=== PATIENT | male | born 1950 | race Caucasian/White ===

== ENCOUNTER → 2018-08-08 | Outpatient (CLI) | payer MEDICARE, OTHER ==
[~2018-08-08] MED LIST: CELEXA40 MG PO; FLOMAX 0.40.4 MG/CAP PO; NORCO 325 MG-51 TAB PO; PRINZIDE 12.5 M1 TA1 PO; ZESTRIL 20MG TA20 MG PO
== END ==
LOC: COL.RAD 06:47
DX: Z13.6 Encounter for screening for cardiovascular disorders (principal)

== ENCOUNTER → 2019-02-17 | Outpatient (CLI) | payer MEDICARE, OTHER | LOC: COL.RAD 07:56 | DX: R91.1 Solitary pulmonary nodule (principal) | CPT/HCPCS: Q9967 ==

== ENCOUNTER 2021-06-09 16:16 | Inpatient (IN) | payer MEDICARE, OTHER ==
[~2021-06-09] VITALS: Ht 182.9 cm; Wt 73.0 kg
[2021-06-09 18:21] LABS: HEMATOCRIT 37.1 % (42.0-52.0); HEMOGLOBIN 13.7 g/dl (13.5-18.0); MEAN CELL VOLUME 87 fl (80.0-100.0); MEAN CORPUSCULAR HEMOGLOBIN 32 pg (27-31); MEAN CORPUSCULAR HGB CONC 37 g/dl (33.0-37.0); MEAN PLATELET VOLUME 8.8 fl (7.4-10.4); PLATELET COUNT 245 K/mm3 (130-400); RED BLOOD COUNT 4.26 M/mm3 (4.20-5.60); REDCELL DISTRIBUTION WIDTH-CV 11.9 % (11.5-14.5)
[2021-06-09 18:36] LABS: BAND 24 % (0-10); LYMPHOCYTE 4 % (20.0-51.0); NEUTROPHILS 63 % (42.0-75.2); PLATELET ESTIMATE NORMAL (NORMAL)
[2021-06-09 18:37] LABS: ALANINE AMINOTRANSFERASE 13 U/L (0-55); ALBUMIN 3.2 gm/dL (3.4-4.8); ALKALINE PHOSPHATASE 57 U/L (40-150); ANION GAP 14 mmol/L (7-16); AST,SGOT 16 U/L (5-34); BILIRUBIN,TOTAL 1.3 mg/dL (0.2-1.2); BLOOD UREA NITROGEN 11 mg/dL (8-26); CALCIUM 9.1 mg/dL (8.4-10.2); CARBON DIOXIDE 22 mmol/L (23-31); CREATININE, serum 0.58 mg/dL (0.72-1.25); GLUCOSE 114 mg/dL (70-99); POTASSIUM 4.3 mmol/L (3.5-4.5); TOTAL PROTEIN 6.9 gm/dL (6.2-8.1)
[2021-06-09 18:39] LABS: CHLORIDE 82 mmol/L (98-107); SODIUM 118 mmol/L (136-145)
[2021-06-09 18:44] LABS: TROPONIN-I < 0.010 ng/mL (0.00-0.033)
[2021-06-09 20:52] LABS: CALCIUM 9.3 mg/dL (8.4-10.2); CREATININE, serum 0.58 mg/dL (0.72-1.25); POTASSIUM 4.3 mmol/L (3.5-4.5)
--- NOTE | 2021-06-09 21:49 | NUR ---
ADMITTED TO ROOM 329 PER WC. O2 2L NC.
[2021-06-09 21:50] VITALS: BP 141/67; PULSE 97; TEMP 98.3
[2021-06-09 22:34] LABS: CALCIUM 8.7 mg/dL (8.4-10.2); CREATININE, serum 0.57 mg/dL (0.72-1.25); POTASSIUM 3.9 mmol/L (3.5-4.5)
--- NOTE | 2021-06-09 22:38 | NUR ---
NOTIFIED SILVA BEGUM OF HIGH CHLORIDE 85. NO NEW ORDERS
[2021-06-09 23:34] VITALS: BP 134/69; PULSE 94; TEMP 97.6
[2021-06-10 00:35] LABS: CALCIUM 8.7 mg/dL (8.4-10.2); CREATININE, serum 0.51 mg/dL (0.72-1.25); POTASSIUM 3.8 mmol/L (3.5-4.5)
[2021-06-10 02:39] LABS: CALCIUM 8.5 mg/dL (8.4-10.2); CREATININE, serum 0.51 mg/dL (0.72-1.25); POTASSIUM 3.7 mmol/L (3.5-4.5)
[2021-06-10 03:45] VITALS: BP 140/29; PULSE 90; TEMP 97.9
[2021-06-10 07:14] LABS: HEMOGLOBIN 12.3 g/dl (13.5-18.0); MEAN CELL VOLUME 91 fl (80.0-100.0); MEAN CORPUSCULAR HEMOGLOBIN 32 pg (27-31); MEAN CORPUSCULAR HGB CONC 36 g/dl (33.0-37.0); MEAN PLATELET VOLUME 9.8 fl (7.4-10.4); PLATELET COUNT 254 K/mm3 (130-400); REDCELL DISTRIBUTION WIDTH-CV 11.9 % (11.5-14.5)
[2021-06-10 07:19] LABS: HEMATOCRIT 34.5 % (42.0-52.0)
[2021-06-10 07:34] VITALS: BP 127/66; PULSE 91; TEMP 97.8
[2021-06-10 07:37] LABS: CALCIUM 8.6 mg/dL (8.4-10.2); CREATININE, serum 0.5 mg/dL (0.72-1.25); POTASSIUM 3.7 mmol/L (3.5-4.5)
--- NOTE | 2021-06-10 08:00 | NUR ---
Patient sitting up in bed, A&Ox3. VSS 2L NC O2, no reported SOB. IV CDI, fluids infusing. Denies pain and discomfort. Audible cough. No further needs expressed. Call light within reach. Seizure precautions in place. Bed alarm on
[2021-06-10 08:01] LABS: BAND 7 % (0-10); BASOPHIL 1 % (0-2)
[2021-06-10 08:02] LABS: LYMPHOCYTE 4 % (20.0-51.0); NEUTROPHILS 71 % (42.0-75.2); PLATELET ESTIMATE NORMAL (NORMAL)
[2021-06-10 11:48] VITALS: BP 121/54; PULSE 100; TEMP 98.1
--- NOTE | 2021-06-10 13:04 | NUR ---
Kraft Digester Operator offered prayer and support with patient.
[2021-06-10 13:24] LABS: CALCIUM 8.5 mg/dL (8.4-10.2); CREATININE, serum 0.6 mg/dL (0.72-1.25); POTASSIUM 3.8 mmol/L (3.5-4.5)
--- NOTE | 2021-06-10 15:25 | NUR ---
SW met with patient to complete intake. Patient states that he lives alone and states that his point of contact is his sister Stephanie Mccauley [phone]. patient provides that he does not currently utilize any DME and is independent with ADL's. He also provides that he does not obtain any outside services for care, PCP is Dr. Gore, [facility] is [facility]. Patient states that his DPOA-HC is hamilton Larkin [phone]. Patient states that his plan is to return to his home [place] and has no concerns with doing so. SW will continue to follow. DC plan: home
[2021-06-10 15:56] VITALS: BP 126/62; PULSE 102; TEMP 99.2
--- NOTE | 2021-06-10 17:56 | NUR ---
Patient sitting up in bed on 10L HF NC O2 and patient overall looks and feels better with higher O2 needs. A&Ox3. VSS. IV CDI. Denies pain and discomfort. Patient wanting more fluids but nursing staff and doctors informing the patient of 1200 FR. Patient verbalized an understanding. No further needs expressed. Call light within reach. Bed alarm on and seizure precautions in place
[2021-06-10 20:26] VITALS: BP 131/71; PULSE 97; TEMP 97.5
--- NOTE | 2021-06-10 20:29 | NUR ---
PT INCONTINENT OF URINE. CLEANED UP. USED INCONT BRIEFS . O2 10L HI FLOW. PT RELATES BREATHING EASIER TONIGHT. DENIES PAIN AT THIS TIME. CALL LIGHT IN REACH. BED ALARM SET.
[2021-06-10 20:45] LABS: CALCIUM 8.7 mg/dL (8.4-10.2); CREATININE, serum 0.57 mg/dL (0.72-1.25); POTASSIUM 3.7 mmol/L (3.5-4.5)
--- NOTE | 2021-06-10 21:09 | NUR ---
NOTIFIED SILVA BEGUM OF CHLORIDE VALUE. NO NEW ORDERS.
[2021-06-11] VITALS (7 sets, daily range): BP systolic 112–123; BP diastolic 59–70; PULSE 58–95; TEMP 97.4–98.2
--- NOTE | 2021-06-11 | NUR ---
PT WOKE UP FOR VS ALITTLE CONFUSED. REORIENTS AFTER A FEW MINUTES. O2 SAT 92% 10L HIGH FLOW. BRIEFS DRY AT THIS TIME. OFFERED URINAL.
--- NOTE | 2021-06-11 05:23 | NUR ---
PT MORE ORIENTED THIS AM. PT HAS PRODUCTIVE COUGH WITH THICK WHITE SPUTUM NOTED. O2 STILL AT 10L HIGH FLOW. SATS MAITAIN ABOVE 90%.
[2021-06-11 07:02] LABS: BASO % 0.1 % (0.0-2.0); GRAN # 6.1 K/mm3 (1.4-6.5); GRAN % 88.9 % (42.2-75.2); HEMOGLOBIN 12.5 g/dl (13.5-18.0); LYMPH # 0.5 K/mm3 (1.2-3.4); LYMPH % 6.7 % (20.0-51.0); MEAN CELL VOLUME 90 fl (80.0-100.0); MEAN CORPUSCULAR HEMOGLOBIN 31 pg (27-31); MEAN CORPUSCULAR HGB CONC 35 g/dl (33.0-37.0); MEAN PLATELET VOLUME 9.2 fl (7.4-10.4); MONO # 0.3 K/mm3 (0.1-0.6); MONO % 3.6 % (1.7-9.3); PLATELET COUNT 323 K/mm3 (130-400); RED BLOOD COUNT 3.98 M/mm3 (4.20-5.60); REDCELL DISTRIBUTION WIDTH-CV 11.9 % (11.5-14.5)
[2021-06-11 07:12] LABS: HEMATOCRIT 35.7 % (42.0-52.0)
[2021-06-11 07:20] LABS: CALCIUM 9.1 mg/dL (8.4-10.2); CREATININE, serum 0.51 mg/dL (0.72-1.25); POTASSIUM 3.6 mmol/L (3.5-4.5)
--- NOTE | 2021-06-11 08:00 | NUR ---
Patient sitting up in bed watching TV. A&Ox4. VSS 10L HF O2, no reported SOB and states that he is feeling better. IV CDI. Denies pain and discomfort. Nurse went over FR with the patient and patient verbalized an understanding. No further needs expressed. Call light within reach. Bed alarm on
--- NOTE | 2021-06-11 17:48 | NUR ---
Patient had an uneventful day. Sister at the bedside most of the day. Patient A&Ox4. VSS 10L HF NC O2, no reported SOB. States that he has coughed up alot of stuff from his lungs. Denies pain and discomfort. Independent with the urinal and has been calling nursing staff for assistance. No further needs expressed. Seizure precautions in place. Call light within reach
--- NOTE | 2021-06-11 22:52 | NUR ---
RESTING IN BED. NO DISTRESS. O2 10L HIGH FLOW N/C. PT RELATES FEEL LIKE HE HAS TURNED A CORNED. FEELING BETTER.
[2021-06-12 03:39] VITALS: BP 139/82; PULSE 86; TEMP 97.8
--- NOTE | 2021-06-12 05:49 | NUR ---
PT SLEPT PERIODICALLY IN THE NIGHT. OCCASIONAL PRODUCTIVE COUGH. O2 REMAINS AT 10L HIGH FLOW N/C. UNEVENTFUL NIGHT.
--- NOTE | 2021-06-12 06:45 | NUR ---
awake resting bed, bedside shift report received from JONATAN Millan
[2021-06-12 07:27] VITALS: BP 125/65; PULSE 76; TEMP 97.5
--- NOTE | 2021-06-12 08:40 | NUR ---
Dr Iraheta and care team in to see patient, he has had breakfast and tolerated well, will provide liquids per his request
--- NOTE | 2021-06-12 09:15 | NUR ---
watching TV, meds given, radiology here and assisted him into WC and down for CT
[2021-06-12 09:29] LABS: BASO % 0.3 % (0.0-2.0); GRAN # 9.8 K/mm3 (1.4-6.5); GRAN % 87.3 % (42.2-75.2); HEMATOCRIT 37.9 % (42.0-52.0); HEMOGLOBIN 13.2 g/dl (13.5-18.0); LYMPH # 0.6 K/mm3 (1.2-3.4); LYMPH % 5.6 % (20.0-51.0); MEAN CELL VOLUME 92 fl (80.0-100.0); MEAN CORPUSCULAR HEMOGLOBIN 32 pg (27-31); MEAN CORPUSCULAR HGB CONC 35 g/dl (33.0-37.0); MEAN PLATELET VOLUME 8.5 fl (7.4-10.4); MONO # 0.7 K/mm3 (0.1-0.6); MONO % 5.8 % (1.7-9.3); PLATELET COUNT 407 K/mm3 (130-400); RED BLOOD COUNT 4.12 M/mm3 (4.20-5.60); REDCELL DISTRIBUTION WIDTH-CV 12.1 % (11.5-14.5)
--- NOTE | 2021-06-12 09:31 | NUR ---
Initial visit; Patient thanked Optical Laboratory Mechanic for looking in on him and offering God's blessings and to keep him in her prayers.
[2021-06-12 09:44] LABS: CREATININE, serum 0.72 mg/dL (0.72-1.25); POTASSIUM 3.5 mmol/L (3.5-4.5)
--- NOTE | 2021-06-12 10:15 | NUR ---
returned from radiology and back to bed, full assessment completed, see interventions for further info, becomes short of breath with exertion and has a hard time talking, will let him rest
--- NOTE | 2021-06-12 10:40 | NUR ---
dietitian in visiting with patient
[2021-06-12 11:29] VITALS: BP 125/64; PULSE 91; TEMP 97.2
--- NOTE | 2021-06-12 12:16 | NUR ---
appears to be sleeping, requested to sleep and will order food later
--- NOTE | 2021-06-12 12:50 | NUR ---
shift report given to JONATAN Harper
[2021-06-12 16:00] VITALS: BP 136/78; PULSE 86; TEMP 97.6
--- NOTE | 2021-06-12 18:20 | NUR ---
Pt has done well over afternoon, resting in bed, remains at 5L HFNC. taking PO well, glad that fluids have increased to 2000ml restriction. Will continue to monitor and [facility] will resume care.
[2021-06-12 19:52] VITALS: BP 132/62; PULSE 94; TEMP 97.5
--- NOTE | 2021-06-12 21:09 | NUR ---
Patient assessed around 2014. Alert and oriented x 4. Reports level 2 pain to left side, but denies wanting anything for pain at this time. LS CTA in upper lobes, coarse in lower. On oxygen at 5 L/min via NC. Denies SOB and dyspnea at rest. HRR. Telemetry inplace. BSAx4. No edema. Voices no questions, needs, or concerns at this time. In bed with call light within reach.
[2021-06-12 23:56] VITALS: BP 128/68; PULSE 72; TEMP 97.5
[2021-06-13 03:47] VITALS: BP 124/74; PULSE 67; TEMP 97.5
--- NOTE | 2021-06-13 06:03 | NUR ---
Patient has been resting in bed with call light within reach. Has denied having pain and discomfort this shift. Voices no questions, needs, or concerns at this time.
[2021-06-13 07:03] LABS: BASO % 0.2 % (0.0-2.0); GRAN # 7.7 K/mm3 (1.4-6.5); GRAN % 84.1 % (42.2-75.2); HEMOGLOBIN 12.1 g/dl (13.5-18.0); LYMPH # 0.7 K/mm3 (1.2-3.4); LYMPH % 7.1 % (20.0-51.0); MEAN CELL VOLUME 93 fl (80.0-100.0); MEAN CORPUSCULAR HEMOGLOBIN 32 pg (27-31); MEAN CORPUSCULAR HGB CONC 34 g/dl (33.0-37.0); MEAN PLATELET VOLUME 8.6 fl (7.4-10.4); MONO # 0.7 K/mm3 (0.1-0.6); MONO % 7.6 % (1.7-9.3); PLATELET COUNT 409 K/mm3 (130-400); RED BLOOD COUNT 3.79 M/mm3 (4.20-5.60); REDCELL DISTRIBUTION WIDTH-CV 12.2 % (11.5-14.5)
[2021-06-13 07:04] LABS: HEMATOCRIT 35.3 % (42.0-52.0)
[2021-06-13 07:13] LABS: CALCIUM 9.1 mg/dL (8.4-10.2); CREATININE, serum 0.58 mg/dL (0.72-1.25); POTASSIUM 4.1 mmol/L (3.5-4.5)
[2021-06-13 08:00] VITALS: BP 128/68; PULSE 71; TEMP 97.3
--- NOTE | 2021-06-13 08:31 | NUR ---
PT SITTING UP IN BED EATING BREAKFAST, PT IS A/O X4, O2 @5LPNC AT THIS TIME. DOWN FROM 10 LPNC.
[2021-06-13 11:14] VITALS: BP 149/80; PULSE 86; TEMP 97.5
[2021-06-13 15:31] VITALS: BP 128/65; PULSE 87; TEMP 97.6
[2021-06-13 20:00] VITALS: BP 119/54; PULSE 83; TEMP 97.7
--- NOTE | 2021-06-13 20:27 | NUR ---
Patient assessed at this time. Alert and oriented x 4, and able to make needs known. Denies having pain and discomfort. Peripheral INT to right forearm. Received IV steroids and ABX per orders. Denies SOB and dyspnea at rest. LS CTA after coughing. Cough moist and productive. HRR. Telemetry in place. BSAx4. Abdomen soft and non-tender. No edema. Voices no questions, needs, or concerns at this time. In bed with call light within reach.
[2021-06-13 23:42] VITALS: BP 122/62; PULSE 63; TEMP 97.7
[2021-06-14 03:25] VITALS: BP 117/72; PULSE 73; TEMP 97.2
--- NOTE | 2021-06-14 05:24 | NUR ---
Patient has been resting in bed with call light within reach. Denies pain and discomfort. Continues on oxyen at 4 L/min via NC.
[2021-06-14 06:50] LABS: HEMOGLOBIN 11.4 g/dl (13.5-18.0); MEAN CORPUSCULAR HEMOGLOBIN 32 pg (27-31); MEAN CORPUSCULAR HGB CONC 33 g/dl (33.0-37.0); MEAN PLATELET VOLUME 8.5 fl (7.4-10.4); PLATELET COUNT 394 K/mm3 (130-400); RED BLOOD COUNT 3.55 M/mm3 (4.20-5.60); REDCELL DISTRIBUTION WIDTH-CV 12.2 % (11.5-14.5)
[2021-06-14 06:51] LABS: HEMATOCRIT 34.6 % (42.0-52.0); MEAN CELL VOLUME 98 fl (80.0-100.0)
[2021-06-14 07:10] LABS: CALCIUM 8.9 mg/dL (8.4-10.2); CREATININE, serum 0.6 mg/dL (0.72-1.25); POTASSIUM 4.6 mmol/L (3.5-4.5)
[2021-06-14 07:34] LABS: BAND 5 % (0-10); LYMPHOCYTE 13 % (20.0-51.0); MYELOCYTE 1 % (0-0); NEUTROPHILS 75 % (42.0-75.2); NUCLEATED RED BLOOD CELL 1 (0-6); PLATELET ESTIMATE NORMAL (NORMAL)
[2021-06-14 07:45] VITALS: BP 125/57; PULSE 62; TEMP 98.3
--- NOTE | 2021-06-14 08:43 | NUR ---
PT UP IN BED EATING BREAKFAST, DENIES NEEDS. AM MEDS GIVEN ORDERED. LUNGS COARSE ALL GRIFFIN. PT USING IS APPROPRIATELY. DENIES PAIN AT THIS TIME.
[2021-06-14 11:18] VITALS: BP 128/66; PULSE 72; TEMP 97.6
[2021-06-14 16:00] VITALS: BP 133/71; PULSE 62; TEMP 98
[2021-06-14 20:44] VITALS: BP 138/65; PULSE 70; TEMP 97.2
--- NOTE | 2021-06-15 00:16 | NUR ---
PT HAD O2 OFF NOSE. CHECK RA- 85%. WILL CHECK AGAIN WITH O2
[2021-06-15 00:29] VITALS: BP 142/71; PULSE 60; TEMP 97.4
[2021-06-15 06:13] LABS: HEMOGLOBIN 12.2 g/dl (13.5-18.0); MEAN CELL VOLUME 96 fl (80.0-100.0); MEAN CORPUSCULAR HEMOGLOBIN 33 pg (27-31); MEAN CORPUSCULAR HGB CONC 34 g/dl (33.0-37.0); MEAN PLATELET VOLUME 8.2 fl (7.4-10.4); PLATELET COUNT 404 K/mm3 (130-400); RED BLOOD COUNT 3.75 M/mm3 (4.20-5.60); REDCELL DISTRIBUTION WIDTH-CV 12.2 % (11.5-14.5)
[2021-06-15 07:16] LABS: BAND 5 % (0-10); LYMPHOCYTE 22 % (20.0-51.0); MYELOCYTE 1 % (0-0); NEUTROPHILS 63 % (42.0-75.2); PLATELET ESTIMATE INCREASED (NORMAL)
[2021-06-15 07:57] LABS: CALCIUM 8.3 mg/dL (8.4-10.2); CREATININE, serum 0.57 mg/dL (0.72-1.25); POTASSIUM 4.2 mmol/L (3.5-4.5)
[2021-06-15 08:00] VITALS: BP 136/60; PULSE 86; TEMP 97.6
[2021-06-15] MEDS ORDERED: PROAIR HFA0.09 MG/AC IH (10:30)
[2021-06-15] MEDS ORDERED: THIAMINE 1100 MG/TAB PO (10:31)
[2021-06-15] MEDS ORDERED: FOLIC ACID 11 MG/TA1 PO (10:31)
[2021-06-15] MEDS ORDERED: CENTRUM SILVER1 CTB PO (10:31)
[2021-06-15] MEDS ORDERED: PREDNISONE20 MG PO (10:33)
[2021-06-15] MEDS ORDERED: NICODERM C21 MG/PATC TD (10:37)
[2021-06-15] MEDS ORDERED: MUCUS RELIEF200 MG PO (10:38)
[2021-06-15] MEDS ORDERED: PRINIVIL20 MG PO (10:40)
--- NOTE | 2021-06-15 10:52 | NUR ---
propagation worker notifed from RT that the patient will need to go home with 3L of oxygen. Spoke with the patient and he is ok with being set up through [facility]. PAtient's information sent to [facility] and spoke with Ran who feels like the patient's diagnosis would qualify for insurance approval. Ran reports that they would be able to bring the patient up some tanks to get home with and will plan to meet the patient at his home later today to get home the patient's home oxygen. Patient is in agreement of the above and patient's son at bedside.
[2021-06-15 12:01] VITALS: BP 134/72; PULSE 75; TEMP 97.5
--- NOTE | 2021-06-15 16:54 | NUR ---
PT DISCHARGE HOME ON STABLE CONDITION. D/C INSTRUCTIONS MEDICATION AND FOLLOW UP REVEIWED WITH PT. QUESTIONS AND CONCERNS ADDRESSED. PT LEFT VIA WC ACCOMAPNIED BY PCT. PT WAS PLACE ON HOME [facility] UPON D/C. ALL PERSONAL BELONGINGS SENT WITH PT
== END 2021-06-15 16:57 | disposition home or self-care (01) | DRG 193 ==
LOC: COL.ER 16:16 → SURG 19:21
PROVIDERS: Physician Assistant; Student in an Organized Health Care Education/Training Program; ADMIT Student in an Organized Health Care Education/Training Program
PROC: 5A0955A Assistance with Respiratory Ventilation, Greater than 96 Consecutive Hours, High Flow/Velocity Cannula (ICD-10-PCS; principal; 2021-06-10)
DX: J18.9 Pneumonia, unspecified organism (principal); J96.01 Acute respiratory failure with hypoxia; E87.1 Hypo-osmolality and hyponatremia; M48.54XA Collapsed vertebra, not elsewhere classified, thoracic region, initial encounter for fracture; I10 Essential (primary) hypertension; F32.A Depression, unspecified; N40.0 Benign prostatic hyperplasia without lower urinary tract symptoms; F17.210 Nicotine dependence, cigarettes, uncomplicated; E87.8 Other disorders of electrolyte and fluid balance, not elsewhere classified; R73.9 Hyperglycemia, unspecified; T38.0X5A Adverse effect of glucocorticoids and synthetic analogues, initial encounter; J43.9 Emphysema, unspecified; Z20.822 Contact with and (suspected) exposure to COVID-19; Z85.46 Personal history of malignant neoplasm of prostate; Z23 Encounter for immunization
CPT/HCPCS: 99223-AI; 99231-AI; 99232-AI; 99233-AI; 99239; A9284; J0456; J0696; J1650; J1815; J1940; J2920; J2930; J7030; J7050; Q9967

== ENCOUNTER → 2021-11-15 | Outpatient (CLI) | payer MEDICARE, OTHER ==
[~2021-11-15] MED LIST changes: +CENTRUM SILVER1 CTB PO; +FOLIC ACID 11 MG/TA1 PO; +MUCUS RELIEF200 MG PO; +NICODERM C21 MG/PATC TD; +PREDNISONE20 MG PO; +PRINIVIL20 MG PO; +PROAIR HFA0.09 MG/AC IH; +THIAMINE 1100 MG/TAB PO
== END ==
LOC: COL.RAD 11-09 13:30
DX: Z12.2 Encounter for screening for malignant neoplasm of respiratory organs (principal); R91.1 Solitary pulmonary nodule; F17.210 Nicotine dependence, cigarettes, uncomplicated

== ENCOUNTER → 2022-11-16 | Outpatient (CLI) | payer MEDICARE, OTHER ==
[~2022-11-16] MED LIST changes: +ASPI325T6 PO; +ASPIRIN E.C. 8181 MG PO; +CITRACAL + D CA1 TAB PO; +COLACE 100100 MG/CAP PO; +CRESTOR20 MG PO; +MIRALAX238G PO; +NICODERM C14 MG/PATC TD; +NICODERM C7 MG/PATCH TD; +PROLIA60 MG/ML SQ; +ROBAXIN 75750 MG/TAB PO; +ROXICODONE 55 MG/TAB PO; +RT ADVAIR 228 DISKUS IH; +SENOKOT S 50 MG1 TAB PO; +TYLENOL 500MG500 MG PO
== END ==
LOC: COL.RAD 09:47
DX: Z12.2 Encounter for screening for malignant neoplasm of respiratory organs (principal); R91.1 Solitary pulmonary nodule; F17.210 Nicotine dependence, cigarettes, uncomplicated

== ENCOUNTER 2024-04-04 09:32 | Inpatient (IN) | payer MEDICARE, OTHER ==
[~2024-04-04] VITALS: Ht 182.9 cm; Wt 68.7 kg
[2024-04-04] VITALS (8 sets, daily range): BP systolic 126–145; BP diastolic 62–78; PULSE 82–101; TEMP 97.5–99.5
[~2024-04-04 09:32] MED LIST changes: +CELEXA 20MG20 MG/TAB PO
[2024-04-04] MEDS ORDERED: fentaNYL 50 MCG/ML 2 ML VIAL IV ONE ×2 (10:00→11:45)
[2024-04-04 10:23] LABS: BASO % 0.2 % (0.0-2.0); EOS % 0.4 % (0.0-4.0); GRAN # 7.1 K/mm3 (1.4-6.5); GRAN % 84.8 % (42.2-75.2); HEMATOCRIT 41.3 % (42.0-52.0); HEMOGLOBIN 14.6 g/dl (13.5-18.0); LYMPH # 0.6 K/mm3 (1.2-3.4); LYMPH % 7.7 % (20.0-51.0); MEAN CELL VOLUME 97 fl (80.0-100.0); MEAN CORPUSCULAR HEMOGLOBIN 34 pg (27-31); MEAN CORPUSCULAR HGB CONC 35 g/dl (33.0-37.0); MEAN PLATELET VOLUME 9.2 fl (7.4-10.4); MONO # 0.6 K/mm3 (0.1-0.6); MONO % 6.7 % (1.7-9.3); PLATELET COUNT 183 K/mm3 (130-400); RED BLOOD COUNT 4.26 M/mm3 (4.20-5.60); REDCELL DISTRIBUTION WIDTH-CV 13.3 % (11.5-14.5)
[2024-04-04 10:37] LABS: ALBUMIN 4.2 g/dL (3.4-4.8); BILIRUBIN,TOTAL 0.9 mg/dL (0.2-1.2); CALCIUM 9.7 mg/dL (8.4-10.2); CREATININE, serum 0.65 mg/dL (0.72-1.25); POTASSIUM 4.2 mEq/L (3.5-4.5)
[2024-04-04 11:46] LABS: PROTHROMBIN TIME 10.8 SECONDS (9.7-12.8)
[2024-04-04] MEDS ORDERED: Ondansetron 4 MG/2 ML VIAL IV PRN (12:15)
[2024-04-04] MEDS ORDERED: Albuterol/Ipratropium 3 MG-0.5 MG/3 ML Neb Soln IH PRN (12:15)
[2024-04-04] MEDS ORDERED: Acetaminophen 500 MG TAB PO SCH (12:15)
[2024-04-04] MEDS ORDERED: Morphine 4 MG/ML VIAL IV PRN (12:15)
[2024-04-04] MEDS ORDERED: predniSONE 20 MG TAB PO SCH (12:15)
[2024-04-04] MEDS ORDERED: oxyCODONE 5 MG TAB PO PRN (12:15)
[2024-04-04] MEDS ORDERED: Albuterol/Ipratropium 3 MG-0.5 MG/3 ML Neb Soln IH SCH (13:00)
[2024-04-04 13:26] LABS: URINE APPEARANCE CLEAR (CLEAR/HAZY); URINE BLOOD 2+ (NEGATIVE); URINE COLOR YELLOW (YELLOW); URINE GLUCOSE NEGATIVE (NEGATIVE); URINE KETONE NEGATIVE (NEGATIVE); URINE NITRATE NEGATIVE (NEGATIVE); URINE PROTEIN(semi-quant) NEGATIVE (NEGATIVE); URINE UROBILINOGEN 0.2 E.U/dL (0.2-1.0)
[2024-04-04 13:44] LABS: COLLECTION METHOD CLEAN CATCH
--- NOTE | 2024-04-04 13:45 | NUR ---
Patient received from the ER. He is alert and ordered. Patient arrived with brief on and incontinent of urine. Patient provided with incontince cares and salinas inserted per ordered, over a liter of urine obtained. Ua send to lab per orders. His sister brought home medications and medication list updated. Kamlesh to RLE, Scds ble. Ice to hip. LLE elevated. Cms intact. Admission assessment completed.
[2024-04-04] MEDS ORDERED: COLACE 100100 MG/CAP PO (13:59)
[2024-04-04] MEDS ORDERED: DITROPAN XL 5MG5 M1 PO (13:59)
--- NOTE | 2024-04-04 17:10 | NUR ---
Patient reports pain increasing again. Roxicodone as ordered. ice pain to hip and LLE elevated and iced. Cms intact.
--- NOTE | 2024-04-04 18:29 | NUR ---
Patient sitting up in bed. Watching [email or web address] football game. Family at bedside. He did well with dinner. Bedside report to Katelin to resume cares.
[2024-04-04] MEDS ORDERED: Formoterol 20 MCG,Budesonide 0.5 MG IH SCH (19:00)
--- NOTE | 2024-04-04 19:21 | NUR ---
PT IN BED AT THIS TIME. CALL LIGHT IS WITHIN REACH. NO COMPLAINTS AT THIS TIME.
[2024-04-04] MEDS ORDERED: Citalopram 20 MG TAB PO SCH (20:00)
[2024-04-04] MEDS ORDERED: Docusate Sodium 100 MG CAP PO SCH (21:00)
[2024-04-04] MEDS ORDERED: Rosuvastatin 20 MG **** subs to Atorvastatin 40 MG PO SCH (21:00)
[2024-04-04] MEDS ORDERED: Lisinopril 20 MG TAB PO SCH (21:00)
[2024-04-04] MEDS ORDERED: Calcium Citrate/Vit D3 200 mg-6.25 mcg(250 Units) TAB PO SCH (21:00)
[2024-04-04] MEDS ORDERED: Atorvastatin 40 MG TAB PO SCH (21:00)
[2024-04-04] MEDS ORDERED: Oxybutynin 5 MG TAB PO SCH (21:00)
[2024-04-05] VITALS (19 sets, daily range): BP systolic 81–137; BP diastolic 31–79; PULSE 75–98; TEMP 97.5–98.6
--- NOTE | 2024-04-05 01:44 | NUR ---
Patient care, medication administration and nursing documentation occurred during a Daylight Savings Time Change.
[2024-04-05 05:50] LABS: BASO % 0.1 % (0.0-2.0); EOS % 0.1 % (0.0-4.0); GRAN # 12.6 K/mm3 (1.4-6.5); GRAN % 86.9 % (42.2-75.2); LYMPH # 0.7 K/mm3 (1.2-3.4); LYMPH % 4.5 % (20.0-51.0); MEAN CORPUSCULAR HGB CONC 35 g/dl (33.0-37.0); MEAN PLATELET VOLUME 9.9 fl (7.4-10.4); MONO # 1.2 K/mm3 (0.1-0.6); MONO % 8.1 % (1.7-9.3); PLATELET COUNT 161 K/mm3 (130-400); RED BLOOD COUNT 3.69 M/mm3 (4.20-5.60); REDCELL DISTRIBUTION WIDTH-CV 13.2 % (11.5-14.5)
[2024-04-05 06:08] LABS: CALCIUM 9.3 mg/dL (8.4-10.2); CREATININE, serum 0.65 mg/dL (0.72-1.25); HEMATOCRIT 35.7 % (42.0-52.0); HEMOGLOBIN 12.5 g/dl (13.5-18.0); MAGNESIUM 1.7 mg/dL (1.6-2.6); MEAN CELL VOLUME 97 fl (80.0-100.0); MEAN CORPUSCULAR HEMOGLOBIN 34 pg (27-31); POTASSIUM 4.1 mEq/L (3.5-4.5)
[2024-04-05] MEDS ORDERED: Midazolam 2 MG/2 ML VIAL ONE (07:21)
[2024-04-05] MEDS ORDERED: Lidocaine PF 2% (20 MG/ML) 5 ML VIAL ONE (07:22)
[2024-04-05] MEDS ORDERED: dexAMETHasone 10 MG/ML VIAL ONE (07:25)
[2024-04-05] MEDS ORDERED: NS 10 ML IV ONE (07:26)
[2024-04-05] MEDS ORDERED: NS 20 ML IV ONE (07:27)
[2024-04-05] MEDS ORDERED: fentaNYL 50 MCG/ML 2 ML VIAL ONE (07:29)
[2024-04-05] MEDS ORDERED: oxyCODONE 5 MG TAB PO PRN ×2 (08:30)
[2024-04-05] MEDS ORDERED: D5LR 1,000 ML IV SCH (08:30)
[2024-04-05] MEDS ORDERED: Magnes Hydrox (MOM) 80 MG/ML 30 ML CUP PO PRN (08:30)
[2024-04-05] MEDS ORDERED: Tranexamic Acid 1,000 MG/10 ML VIAL ONE (08:30)
[2024-04-05] MEDS ORDERED: Naloxone 0.4 MG/ML VIAL IV PRN ×2 (08:30)
[2024-04-05] MEDS ORDERED: Phenylephrine 10 MG/ML VIAL ONE (08:32)
[2024-04-05] MEDS ORDERED: Topical Skin Adhesive 1 EACH (1 ML) TOP ONE ×2 (09:03→10:02)
[2024-04-05] MEDS ORDERED: Ondansetron 4 MG/2 ML VIAL IV PRN (09:15)
[2024-04-05] MEDS ORDERED: Meperidine 50 MG/ML 1 ML VIAL IV PRN (09:15)
[2024-04-05] MEDS ORDERED: fentaNYL 50 MCG/ML 1 ML SYRINGE/VIAL [PACU/SDC ONLY] IV PRN (09:15)
[2024-04-05] MEDS ORDERED: HYDROmorphone 1 MG/1 ML SYRINGE [PACU/SDC ONLY] IV PRN (09:15)
[2024-04-05] MEDS ORDERED: hydrALAZINE 20 MG/ML 1 ML VIAL IV PRN (09:15)
[2024-04-05] MEDS ORDERED: Acetaminophen 500 MG TAB PO SCH (09:24)
[2024-04-05] MEDS ORDERED: LR 1,000 ML IV ONE (10:04)
--- NOTE | 2024-04-05 11:10 | NUR ---
PT RETURNED POST-OP. TOLERATING LIQUIDS. PROVIDED COFFEE TO PT. ADVANCED DIET. REPORTS BURNING PAIN TO L HIP. POST OP VITALS ON.
--- NOTE | 2024-04-05 12:54 | NUR ---
PT SITTING UP IN BED. AAOX4. HEAD TO TOE ASSESSMENT COMPLETED. MORNING MEDS HELD PRE-OP. BED IN LOWEST POSITION. FAMILY AT BEDSIDE. CALL LIGHT IN REACH.
--- NOTE | 2024-04-05 13:16 | NUR ---
SW met with patient to complete intake. Patient states that he lives alone in [facility], point of contact is his daughter Mariana Ferrer [phone] who is also appointed as his DPOA/HC. Patient states that he utilizes a cane for mobility and is indepenent with ADLS, PCP is a physican who replaced Dr. Palafox per patient and pharmacy is [facility]. Patient states that he does not utilize home health services at this time and plans to return to his home upon discharge. SW will continue to follow. Discharge plan: home.
[2024-04-05] MEDS ORDERED: Nicotine 21 MG DAILY PATCH TD SCH (14:45)
[2024-04-05] MEDS ORDERED: Sennosides/Docusate 8.6-50 MG TAB PO SCH (21:00)
[2024-04-06] VITALS (14 sets, daily range): BP systolic 110–150; BP diastolic 62–71; PULSE 68–100; TEMP 97.9–98.5
[2024-04-06 05:46] LABS: BASO % 0.1 % (0.0-2.0); GRAN # 8.6 K/mm3 (1.4-6.5); GRAN % 81.6 % (42.2-75.2); HEMOGLOBIN 10.6 g/dl (13.5-18.0); LYMPH # 0.8 K/mm3 (1.2-3.4); LYMPH % 7.2 % (20.0-51.0); MEAN CELL VOLUME 99 fl (80.0-100.0); MEAN CORPUSCULAR HEMOGLOBIN 34 pg (27-31); MEAN CORPUSCULAR HGB CONC 34 g/dl (33.0-37.0); MONO # 1.1 K/mm3 (0.1-0.6); MONO % 10.7 % (1.7-9.3); PLATELET COUNT 141 K/mm3 (130-400); RED BLOOD COUNT 3.15 M/mm3 (4.20-5.60); REDCELL DISTRIBUTION WIDTH-CV 13.4 % (11.5-14.5)
[2024-04-06 06:02] LABS: CALCIUM 8.5 mg/dL (8.4-10.2); CREATININE, serum 0.67 mg/dL (0.72-1.25); POTASSIUM 4.1 mEq/L (3.5-4.5)
[2024-04-06 06:04] LABS: HEMATOCRIT 31.1 % (42.0-52.0)
--- NOTE | 2024-04-06 08:15 | NUR ---
Pt. laying in bed. Pt. is A&OX3, assessment complete. INT to rt. forearm. Pt. reports pain at a 5 on pain scale, giving pain meds per orders. Order reveived to DC salinas catheter. Deyanira, student nurse, removed salinas per policy. Pt. tolerated well. Pt. denie further needs, call light within reach.
[2024-04-06] MEDS ORDERED: Calcium Carbonate 500 MG TAB PO SCH (09:00)
[2024-04-06] MEDS ORDERED: Ascorbic Acid 500 MG TAB PO SCH (09:00)
--- NOTE | 2024-04-06 09:54 | NUR ---
Initial visit; Patient was very pleasant to talk with. He and Deputy Sheriff Lieutenant discussed his life, his family; life and deaths and how it affected his health. He is up for the first time since his second hip surgery. He understands himself and what is good for him and what is not. He was very receptive to prayer and thanked Deputy Sheriff Lieutenant for visiting and praying with him. He shook her hand while thanking her for visiting him.
[2024-04-06] MEDS ORDERED: Multivitamin TAB PO SCH (12:00)
--- NOTE | 2024-04-06 12:28 | NUR ---
Sail Cutter was notified Hospitalist put in screen for IPR. SW gave referral to IPR Director, Rocío. Later, Rocío notified SW that she met with patient/family and submitted to [facility] for Auth. Discharge Plan: IPR Screen
--- NOTE | 2024-04-06 16:58 | NUR ---
SW met with patient to discuss voting protocol as tomorrow (04/07/2024) is Election Day. Patient is a registered voter and interested in getting a ballot.
--- NOTE | 2024-04-06 22:24 | NUR ---
Patient assessed around 2024. Alert and oriented, and able to make needs known. Denies having pain and discomfort. Peripheral INT to right forearm. Denies SOB and dyspnea. LS CTA. HRR. BSAx4. Aquacell to let hip CDI. Voices no questions, needs, or concerns at this time. In bed with call light within reach. High fall risk precautions in place. Bed alarm on.
[2024-04-07 03:46] VITALS: BP 168/77; PULSE 81; TEMP 98.1
[2024-04-07 04:15] VITALS: BP_SYST 168
--- NOTE | 2024-04-07 06:06 | NUR ---
Patient has denied having pain and discomfort. Received scheduled Acetaminophen. Voices no questions, needs, or concerns at this time. In bed with call light within reach. High fall risk precautions in place. Bed alarm on.
[2024-04-07 06:12] LABS: HEMATOCRIT 32.2 % (42.0-52.0)
[2024-04-07 08:22] VITALS: BP 127/62; PULSE 99; TEMP 100
[2024-04-07 09:00] VITALS: BP_SYST 127
[2024-04-07 10:25] LABS: URINE APPEARANCE TURBID (CLEAR/HAZY); URINE BLOOD 3+ (NEGATIVE); URINE COLOR ORANGE (YELLOW); URINE GLUCOSE NEGATIVE (NEGATIVE); URINE KETONE NEGATIVE (NEGATIVE); URINE NITRATE POSITIVE (NEGATIVE); URINE PROTEIN(semi-quant) 2+ (NEGATIVE)
[2024-04-07 10:36] LABS: MUCOUS PRESENT (NOT PRESENT); SQUAMOUS EPITHELIAL 20-50 /hpf (0-10); URINE BACTERIA MANY /hpf (NONE SEEN); URINE RBC >50 /hpf (0-2); URINE WBC >50 /hpf (0-2)
[2024-04-07 10:41] LABS: COLLECTION METHOD CLEAN CATCH
[2024-04-07 11:17] VITALS: BP 119/68; PULSE 101; TEMP 98.2
[2024-04-07] MEDS ORDERED: ASPI325T6 PO (11:43)
[2024-04-07] MEDS ORDERED: TYLENOL 500MG500 MG PO (11:44)
[2024-04-07] MEDS ORDERED: ROXICODONE 55 MG/TAB PO (11:44)
[2024-04-07] MEDS ORDERED: VITAMIN C500 MG PO (11:45)
[2024-04-07] MEDS ORDERED: DUO-KAPS1 CAP PO (11:46)
[2024-04-07] MEDS ORDERED: PREDNISONE20 MG PO (11:49)
--- NOTE | 2024-04-07 12:52 | NUR ---
TRANSFERED PT TO [facility] ROOM 333 PER WC.
--- NOTE | 2024-04-07 13:41 | NUR ---
Patient to discharge to [facility] today. SW offered patient an application to fill out to request a ballot. Patient filled out application, which CLARISA provided to [place] to deliver to the courthouse.
== END 2024-04-07 12:45 | DRG 521 ==
LOC: COL.ER 09:32 → SURG 11:18
PROVIDERS: Emergency Medicine; Orthopaedic Surgery; Physician Assistant; ADMIT Internal Medicine
PROC: 0SRR019 Replacement of Right Hip Joint, Femoral Surface with Metal Synthetic Substitute, Cemented, Open Approach (ICD-10-PCS; principal; 2024-04-04)
DX: S72.031A Displaced midcervical fracture of right femur, initial encounter for closed fracture (principal); J96.01 Acute respiratory failure with hypoxia; W19.XXXA Unspecified fall, initial encounter; R50.9 Fever, unspecified; J43.9 Emphysema, unspecified; F10.90 Alcohol use, unspecified, uncomplicated; I10 Essential (primary) hypertension; E78.5 Hyperlipidemia, unspecified; F32.A Depression, unspecified; N40.0 Benign prostatic hyperplasia without lower urinary tract symptoms; Z79.82 Long term (current) use of aspirin; Z87.891 Personal history of nicotine dependence; K21.9 Gastro-esophageal reflux disease without esophagitis; J44.9 Chronic obstructive pulmonary disease, unspecified; F41.9 Anxiety disorder, unspecified; C61 Malignant neoplasm of prostate
CPT/HCPCS: A4314; A6197; A9284; C1713; C1776; J0690; J1100; J2250; J2270; J2371; J2704; J3010; J7120; J7121; J7512